=== PATIENT | male | born 1975 | race Asian ===

== ENCOUNTER 2023-09-20 14:58 | Outpatient (CLI) | payer OTHER | END 2023-09-20 18:58 | disposition home or self-care (01) | LOC: CT 14:58 | PROVIDERS: ATTEND Nurse Practitioner Family | DX: Z13.6 Encounter for screening for cardiovascular disorders (principal); E78.49 Other hyperlipidemia ==

== ENCOUNTER 2023-09-20 15:02 | Outpatient (CLI) | payer BC | END 2023-09-20 18:58 | disposition home or self-care (01) | LOC: US 15:02 | PROVIDERS: ATTEND Nurse Practitioner Family | DX: E78.49 Other hyperlipidemia (principal) ==